=== PATIENT | female | born 1955 | race Caucasian/White ===

== ENCOUNTER 2024-03-13 14:40 | Outpatient (CLI) | payer MEDICARE, SELFPAY ==
--- NOTE | 2024-03-13 | ECHO_ITS ---
Patient Info Name: Kymberly Evans Age: 68 years : 1955 Gender: Female Ht: 61 in Wt: 163 lbs BSA: 1.81 m2 HR: 67 bpm BP: 140 / 89 mmHg Heart Rhythm: Sinus Rhythm Technical Quality: Fair Exam Date: 03/13/2024 2:56 PM Exam Location: Echo Lab Patient Status: Outpatient Admit Date: 03/13/2024 Staff Ordering Physician: [email or web address] PA-C Change Manager: Val Moss RDCS Attending Provider: Diamond Smith PA-C Exam Type: CA echo doppler color flow Study Info Indications - heart murmur Complete two-dimensional, color flow and Doppler transthoracic echocardiogram is performed. Summary 1. Left ventricular chamber dimension is normal. 2. Left ventricular systolic function is normal, estimated at 65-70%. 3. The left ventricular diastolic function is grade I diastolic dysfunction. 4. Right ventricular systolic function is normal. 5. Left atrial chamber dimension is mildly enlarged. 6. There is mild aortic valve regurgitation. 7. There is mild mitral valve regurgitation. 8. There is mild tricuspid valve regurgitation. Left Ventricle Left ventricular chamber dimension is normal. Left ventricular systolic function is normal, estimated at 65-70%. There is no increased left ventricular wall thickness. The left ventricular diastolic function is grade I diastolic dysfunction. Right Ventricle Right ventricular chamber dimension is normal. Right ventricular systolic function is normal. Left Atria Left atrial chamber dimension is mildly enlarged. Right Atria Right atrial chamber dimension is normal. Atrial Septum Intact interatrial septum visualized by color flow imaging. Aortic Valve The aortic valve is trileaflet. There is no aortic valve stenosis. There is mild aortic valve regurgitation. Pulmonic Valve The pulmonic valve is not well visualized. Mitral Valve There is mild mitral valve regurgitation. Tricuspid Valve There is mild tricuspid valve regurgitation. Pericardium/Pleural There is no pericardial effusion. Inferior Vena Cava Normal inferior vena cava with <50% collapse upon inspiration consistent with elevated right atrial pressure, 8 mmHg. Aorta The aortic root size at the sinus of Valsalva is normal. Left Ventricular Outflow Tract Name Value Normal LVOT 2D LVOT Diameter 2.0 cm LVOT Doppler LVOT Peak Gradient 5 mmHg LVOT Mean Gradient 2 mmHg LVOT VTI 24 cm LVOT VTI/AV VTI Ratio 0.6 LVOT Stroke Volume 79 ml LVOT CO 3.9 l/min LVOT CI 2.2 l/min/m2 Pulmonic Valve Name Value Normal RVOT Doppler RVOT Peak Gradient 2 mmHg PV Doppler PV Peak Gradient 5 mmHg Mitral Valve --------
== END 2024-03-13 14:41 | disposition home or self-care (01) ==
PROVIDERS: PCP Physician Assistant; Visit Provider Physician Assistant
DX: R01.1 Cardiac murmur, unspecified (principal); I51.89 Other ill-defined heart diseases; I35.1 Nonrheumatic aortic (valve) insufficiency; I34.0 Nonrheumatic mitral (valve) insufficiency; I36.1 Nonrheumatic tricuspid (valve) insufficiency
CPT/HCPCS: 93306